=== PATIENT | female | born 1995 | race Hispanic/Latino ===

== ENCOUNTER 2017-10-28 14:45 | Emergency (ER) | payer OTHER ==
[~2017-10-28] VITALS: Ht 162.6 cm; Wt 60.4 kg
[2017-10-28 16:44] VITALS: BP 109/68
== END 2017-10-28 16:45 | disposition home or self-care (01) | DRG 781 ==
LOC: EDSEX 14:45 → ED 14:45
DX: O26.892 Other specified pregnancy related conditions, second trimester (principal); S30.1XXA Contusion of abdominal wall, initial encounter; R10.9 Unspecified abdominal pain; Z3A.26 26 weeks gestation of pregnancy; W01.198A Fall on same level from slipping, tripping and stumbling with subsequent striking against other object, initial encounter; Y93.89 Activity, other specified; Y92.89 Other specified places as the place of occurrence of the external cause